=== PATIENT | female | born 1990 | race Asian ===

== ENCOUNTER 2016-07-06 09:44 | Emergency (ER) | payer BC ==
[2016-07-06] MEDS ORDERED: Insulin LISPRO* 1 UNITS UNIT SUBCUT ONE (10:35)
[2016-07-06] MEDS ORDERED: Dextrose 50% Syringe 50 ML* 25 GM/50 ML SYRINGE IV PUSH PRN (10:35)
[2016-07-06] MEDS ORDERED: Insulin REGULAR(*) 1 UNITS UNIT ONE (10:36)
[2016-07-06] MEDS ORDERED: NS 0.9% 1000 ML* 1,000 ML BOLUS SCH (10:45)
[2016-07-06 10:53] LABS: Hematocrit 42 % (35-47); Hemoglobin 14.1 g/dl (12.0-16.0); Mean Corpuscular HGB Conc 34 g/dl (31-36); Mean Corpuscular Hemoglobin 31 pg (27-31); Mean Corpuscular Volume 91 fL (80-97); Mean Platelet Volume 8 um3 (7.4-10.4); Red Blood Count 4.55 10^6/ul (4.0-5.4); Red Cell Distribution Width 12 % (10.5-15)
[2016-07-06] MEDS ORDERED: Insulin REGULAR(*) 1 UNITS UNIT SUBCUT ONE (10:57)
--- NOTE | 2016-07-06 11:00 | ED ---
Respiratory - History of Current Complaint Chief Complaint: EDDiabeticProb Stated Complaint: BLOOD SUGAR ISSUE/SENT FROM [facility] Time Seen by Provider: 07/06/16 10:23 Hx Obtained From: Patient Onset/Duration: Gradual Onset - has had URI for 2-3 weeks. went to [facility] today and was sent here to check sugar. Patient states she did not take insulin yet today and has BS in the 700's in past. She is on a sliding scale of R insulin as well as lantus 30u qd. States she feels weak and dehydrated today. roommate has been sick with gilberto sympnoah. Timing: Constant Initial Severity: Mild Current Severity: Mild Pain Intensity: 3 - Allergy/Home Medications Allergies/Adverse Reactions: Allergies Allergy/AdvReac Type Severity Reaction Status Date / Time Ketorolac Tromethamine Allergy Unknown Verified 07/06/16 09:54 [From Toradol] Reaction Details Meperidine [From Demerol HCl] Allergy Unknown Verified 07/06/16 09:54 Reaction Details Morphine Allergy Unknown Verified 07/06/16 09:54 Reaction Details Promethazine [From Phenergan] Allergy Unknown Verified 07/06/16 09:54 Reaction Details Sulfa Antibiotics Allergy Unknown Verified 07/06/16 09:54 Reaction Details Tramadol Allergy Unknown Verified 07/06/16 09:54 Reaction Details PMH/Surg Hx/FS Hx/Imm Hx Endocrine/Hematology History: Reports: Hx Diabetes - Immunization History Immunizations Up to Date: Yes - Flu vaccine [id number] Infectious Disease History: No Infectious Disease History: Denies: Traveled Outside the [place] in Last 30 Days - Family History Known Family History: Positive: None - Social History Occupation: Employed Full-time - [employer] Lives: With Family Alcohol Use: None Substance Use Type: Reports: None Hx Tobacco Use: No Smoking Status (MU): Never Smoked Tobacco Review of Systems Constitutional: Negative Eyes: Negative Negative: Photophobia, Blurred Vision ENT: Negative Cardiovascular: Negative Negative: Chest Pain Respiratory: Negative Negative: Shortness Of Breath - very vague URI symptoms last week Positive: Nausea. Negative: Abdominal Pain, Diarrhea Genitourinary: Negative Musculoskeletal: Negative Skin: Negative Negative: Rash Neurological: Negative Positive: Headache - intermittant Psychological: Normal All Other Systems Reviewed And Are Negative: Yes Physical Exam Triage Information Reviewed: Yes Vital Signs On Initial Exam: Initial Vitals Temp Pulse Resp BP Pulse Ox 99 F 95 20 127/89 100 07/06/16 09:54 07/06/16 09:54 07/06/16 09:54 07/06/16 09:54 07/06/16 09:54 Vital Signs Reviewed: Yes Appearance: Positive: Well-Appearing, No Pain Distress, Well-Nourished Skin: Positive: Warm, Skin Color Reflects Adequate Perfusion, Dry Head/Face: Positive: Normal Head/Face Inspection Eyes: Positive: Normal, Conjunctiva Clear ENT: Positive: Pharynx normal. Negative: Nasal congestion, Nasal drainage Respiratory/Lung Sounds: Positive: Clear to Auscultation, Breath Sounds Present , Other - no cough Cardiovascular: Positive: Normal, RRR, Pulses are Symmetrical in both Upper and Lower Extremities Abdomen Description: Positive: Nontender, No Organomegaly, Soft Musculoskeletal: Positive: Normal, Strength/ROM Intact Neurological: Positive: Normal, Sensory/Motor Intact, Alert, Oriented to Person Place, Time Psychiatric: Positive: Normal Diagnostics - Vital Signs Vital Signs Temp Pulse Resp BP Pulse Ox 07/06/16 09:54 99 F 95 20 127/89 100 - Laboratory Lab Results: Lab Results 07/06/16 07/06/16 Range/Units 10:25 10:25 WBC 8.0 (3.5-10.8) 10^3/ul RBC 4.55 (4.0-5.4) 10^6/ul Hgb 14.1 (12.0-16.0) g/dl Hct 42 (35-47) % MCV 91 (80-97) fL MCH 31 (27-31) pg MCHC 34 (31-36) g/dl RDW 12 (10.5-15) % Plt Count 263 (150-450) 10^3/ul MPV 8 (7.4-10.4) um3 Neut % (Auto) 58.1 (38-83) % Lymph % (Auto) 33.4 (25-47) % [place] % (Auto) 6.3 (1-9) % Eos % (Auto) 1.5 (0-6) % Baso % (Auto) 0.7 (0-2) % Absolute Neuts (auto) 4.7 (1.5-7.7) 10^3/ul Absolute Lymphs (auto) 2.7 (1.0-4.8) 10^3/ul Absolute Monos (auto) 0.5 (0-0.8) 10^3/ul Absolute Eos (auto) 0.1 (0-0.6) 10^3/ul Absolute Basos (auto) 0.1 (0-0.2) 10^3/ul Absolute Nucleated RBC 0 10^3/ul Nucleated RBC % 0 Lactic Acid 0.7 (0.5-2.0) mmol/L Result Diagrams: 07/06/16 10:25 07/06/16 10:25 Lab Statement: Any lab studies that have been ordered have been reviewed, and results considered in the medical decision making process. Re-Evaluation - Re-Evaluation First Eval Re-Evaluation Time: 12:00 Change: Unchanged Second Eval Re-Evaluation Time: 01:40 - states feels warm, Temp :98.4, given ice water at her request Change: Unchanged Disposition - Course Course Of Treatment: discussed case with Dr. Bal, reviewed labs and agrees with decision to discharge pt home with Rx cipro for UTI and have her monitor BS closely - Differential Dx - Cardiopulmonary Differential Diagnoses - Cardiopulmonary: Other - URI, Hyperglycemia, flu (had vaccine) - Diagnoses Provider Diagnoses: UTI (urinary tract infection), Hyperglycemia due to type 1 diabetes mellitus Discharge - Discharge Plan Condition: Stable Disposition: HOME Prescriptions: Ciprofloxacin HCl [Cipro] 500 mg PO BID #18 tab Patient Education Materials: Urinary Tract Infection in Women (ED), Diabetic Ketoacidosis (ED) Additional Instructions: Take cipro for your urinary tract infection and drink plenty of fluids. Make sure to check your blood sugar more frequently while you have an infection Please review the information about diabetic Ketoacidosis (there is no evidence of this on exam today) Return to ER immediately if your symptoms worsen at any time
[2016-07-06 11:05] LABS: ALT 10 U/L (7-52); Albumin 3.7 g/dL (3.2-5.2); Alkaline Phosphatase 71 U/L (34-104); BUN/Creatinine Ratio 35.2 (8-20); Blood Urea Nitrogen 19 mg/dL (6-24); C Reactive Protein 1.92 mg/L (< 5.00); CO2 Carbon Dioxide 23 mmol/L (22-32); Calcium 8.9 mg/dL (8.6-10.3); Chloride 99 mmol/L (101-111); EGFR African American 175.5 (>60); EGFR Non-African American 136.5 (>60); Glucose 427 mg/dL (70-100); Sodium 131 mmol/L (133-145); Total Protein 6.7 g/dL (6.4-8.9)
[2016-07-06 12:04] LABS: Urine Bacteria 1+ (Absent); Urine Bilirubin Negative (Negative); Urine Glucose 3+(>=500 mg/dL) (Negative); Urine Nitrite Positive (Negative)
[2016-07-06 13:17] LABS: Anion Gap 9 mmol/L (2-11); Potassium 4.1 mmol/L (3.5-5.0)
[2016-07-06 13:24] LABS: AST 12 U/L (13-39)
[2016-07-06] MEDS ORDERED: Acetaminophen TAB* 325 MG PO ONE (15:02)
[2016-07-06] MEDS ORDERED: Ciprofloxacin TAB* 500 MG PO ONE ×2 (15:09)
[2016-07-06 15:45] VITALS: BP 116/78
== END 2016-07-06 15:46 | disposition home or self-care (01) ==
LOC: ED 09:44
DX: J06.9 Acute upper respiratory infection, unspecified (principal); E10.65 Type 1 diabetes mellitus with hyperglycemia; R11.0 Nausea; R51 Headache
CPT/HCPCS: 36415; 80053; 81003; 81015; 83605; 84702; 85025; 86140; 87077; 87086; 87186; 96360; 99282; A9270-GY

== ENCOUNTER 2017-05-19 17:40 | Emergency (ER) | payer SELFPAY ==
[2017-05-19 18:11] VITALS: BP 144/77
--- NOTE | 2017-05-19 20:31 | UC ---
Rodney Colunga Gabriel, scribed for Jewel Mcgrath MD on 05/19/17 at 2012 . Back Pain HPI - HPI Summary HPI Summary: This patient is a 26 year old F presenting to [facility] [place] [facility] accompanied by with a chief complaint of back pain since 9 days ago. The patient rates the pain 8/10 in severity and describes it as a ball of white heat. Patient reports ABD pain and pleuritic pain. Patient denies SOB, diaphoresis, incontinence, vomiting, melena, and diarrhea. Patient says she is unable to work due and is crying at work. - History of Current Complaint Chief Complaint: UCBackPain Stated Complaint: BACK PAIN Time Seen by Provider: 05/19/17 20:05 Hx Obtained From: Patient Hx Last Menstrual Period: 05/05/17 Onset/Duration: Lasting Days - 9, Still Present Timing: Constant Severity Initially: Severe Severity Currently: Moderate Pain Intensity: 8 Pain Scale Used: 0-10 Numeric Associated Signs And Symptoms: Positive: Negative - SOB, diaphoresis, incontinence, vomiting, melena, and diarrhea, Other - ABD pain and pleuritic pain - Allergies/Home Medications Allergies/Adverse Reactions: Allergies Allergy/AdvReac Type Severity Reaction Status Date / Time Ketorolac Tromethamine Allergy Unknown Verified 05/19/17 18:10 [From Toradol] Reaction Details Meperidine [From Demerol HCl] Allergy Unknown Verified 05/19/17 18:10 Reaction Details Morphine Allergy Unknown Verified 05/19/17 18:10 Reaction Details Promethazine [From Phenergan] Allergy Unknown Verified 05/19/17 18:10 Reaction Details Sulfa Antibiotics Allergy Unknown Verified 05/19/17 18:10 Reaction Details Tramadol Allergy Unknown Verified 05/19/17 18:10 Reaction Details Home Medications: Home Medications Gabapentin CAP(*) [Neurontin 100 mg CAP(*)] 200 mg PO TID 05/19/17 [History Confirmed 05/19/17] Naproxen Sodium [Naproxen Sodium 220 mg] 440 mg PO 05/19/17 [History] PMH/Surg Hx/FS Hx/Imm Hx Previously Healthy: No Endocrine History: Diabetes GI/ History: Other Other GI/ History: pancreatitis Neurological History: Seizures, Other Other Neurological History: neuropathy and fibromyalgia - Surgical History Surgical History: Yes Surgery Procedure, Year, and Place: appy, choley, wisdom teeth - Family History Known Family History: Positive: None - Social History Occupation: Employed Full-time Lives: With Family - Alcohol Use: Occasionally Substance Use Type: None Smoking Status (MU): Never Smoked Tobacco Review of Systems Cardiovascular: Other - pleuritic pain Gastrointestinal: Abdominal Pain Musculoskeletal: Other: - back pain All Other Systems Reviewed And Are Negative: Yes Physical Exam Triage Information Reviewed: Yes Appearance: Well-Appearing, No Pain Distress Vital Signs: Initial Vital Signs Temp 98.1 F 05/19/17 18:05 Pulse 121 05/19/17 18:05 Resp 18 05/19/17 18:05 BP 144/77 05/19/17 18:05 Pulse Ox 100 05/19/17 18:05 Vital Signs Reviewed: Yes Eyes: Positive: Conjunctiva Clear ENT: Positive: Normal ENT inspection Neck: Positive: Nontender Respiratory: Positive: Chest non-tender, Lungs clear, Normal breath sounds, Other: - tenderness over the lower lumbar spine Cardiovascular: Positive: RRR, No Murmur, Tachycardia Abdomen Description: Positive: Other: - mild epigastric tenderness Musculoskeletal: Positive: Other: - she is slow to change position due to back pain. Neurological: Positive: Alert, Muscle Tone Normal, Other: - she states she has chronic numbness in legs due to neuropathy. Back Pain Course/Dx - Course Course Of Treatment: 26 yr old female with DM on insulin pump, and with epigastric pain and thoracic back pain. She has baseline impared sensation due to neuropathy. She has had prior pancreatitis. She has tachycardia. She has refused ALS transport to ER for further work up. She has signed out AMA. - Differential Dx/Diagnosis Provider Diagnoses: epigastric abdominal pain. thoracic back pain. tachycardia Discharge - Discharge Plan Condition: Good Disposition: AGAINST MEDICAL ADVICE Referrals: Ana Garza MD [Primary Care Provider] - The documentation as recorded by the Rodney rollins Gabriel accurately reflects the service I personally performed and the decisions made by me, Jewel Mcgrath MD.
== END 2017-05-19 20:30 | disposition left against medical advice (07) ==
LOC: UCEAST 17:40
DX: M54.6 Pain in thoracic spine (principal); R10.13 Epigastric pain; R00.0 Tachycardia, unspecified; E11.40 Type 2 diabetes mellitus with diabetic neuropathy, unspecified; Z79.4 Long term (current) use of insulin; Z96.41 Presence of insulin pump (external) (internal); Z88.2 Allergy status to sulfonamides; Z88.5 Allergy status to narcotic agent; Z88.8 Allergy status to other drugs, medicaments and biological substances
CPT/HCPCS: 99212; G0463

== ENCOUNTER 2017-05-19 20:42 | Emergency (ER) | payer SELFPAY ==
[2017-05-20] LABS: Urine Bacteria 2+ (Absent); Urine Bilirubin Negative (Negative); Urine Glucose 3+(>=500 mg/dL) (Negative); Urine Nitrite Positive (Negative)
[2017-05-20 00:51] LABS: Hematocrit 39 % (35-47); Hemoglobin 13.6 g/dl (12.0-16.0); Mean Corpuscular HGB Conc 35 g/dl (31-36); Mean Corpuscular Hemoglobin 30 pg (27-31); Mean Corpuscular Volume 85 fL (80-97); Mean Platelet Volume 8 um3 (7.4-10.4); Red Blood Count 4.58 10^6/ul (4.0-5.4); Red Cell Distribution Width 12 % (10.5-15); White Blood Count 9.1 10^3/ul (3.5-10.8)
[2017-05-20 01:11] LABS: ALT 12 U/L (7-52); Albumin 3.8 g/dL (3.2-5.2); Alkaline Phosphatase 44 U/L (34-104); Anion Gap 8 mmol/L (2-11); BUN/Creatinine Ratio 28.6 (8-20); Blood Urea Nitrogen 16 mg/dL (6-24); CO2 Carbon Dioxide 22 mmol/L (22-32); Calcium 8.8 mg/dL (8.6-10.3); Chloride 100 mmol/L (101-111); EGFR Non-African American 129.9 (>60); Globulin 3.1 g/dL (2-4); Glucose 292 mg/dL (70-100); Lipase 17 U/L (11.0-82.0); Sodium 130 mmol/L (133-145); Total Protein 6.9 g/dL (6.4-8.9)
[2017-05-20] MEDS ORDERED: oxyCODONE/Acetamin 5/325 MG* TAB PO ONE (01:12)
[2017-05-20] MEDS ORDERED: NS 0.9% 1000 ML* 1,000 ML IV ONE (01:14)
[2017-05-20] MEDS ORDERED: cefTRIAXone(*) 1 GM in NS 0.9% 50 ML* 50 ML IVPB ONE (02:40)
[2017-05-20] MEDS ORDERED: Methocarbamol TAB* 500 MG PO ONE ×2 (02:40→04:00)
--- NOTE | 2017-05-20 03:14 | ED ---
Back Pain - HPI Summary HPI Summary: 26F presents with back pain for a week. She states it started in the center of her posterior back and radiates to the side of her abdomen. She states it is a sharp pain. She states she has been getting hot flashes. She denies any chest pain or SOB. She states she get tingling down her leg. She denies any injury. She denies any loss of bowel or bladder. She denies any saddle parethesia. she has history of pancreatitis. She is diabetic type 1 on insulin pump. She denies any fever, nausea, vomiting. She denies any dysuria, frequency or urgency. She has had gallbladder and appendix removed. she has an extensive allergy list although has taken percocet before. - History of Current Complaint Chief Complaint: EDAbdPain Stated Complaint: ABD/BACK PAIN Time Seen by Provider: 05/19/17 23:58 Hx Last Menstrual Period: 05/05/17 Pain Intensity: 8 - Allergies/Home Medications Allergies/Adverse Reactions: Allergies Allergy/AdvReac Type Severity Reaction Status Date / Time Ketorolac Tromethamine Allergy Unknown Verified 05/19/17 20:52 [From Toradol] Reaction Details Meperidine [From Demerol HCl] Allergy Unknown Verified 05/19/17 20:52 Reaction Details Morphine Allergy Unknown Verified 05/19/17 20:52 Reaction Details Promethazine [From Phenergan] Allergy Unknown Verified 05/19/17 20:52 Reaction Details Sulfa Antibiotics Allergy Unknown Verified 05/19/17 20:52 Reaction Details Tramadol Allergy Unknown Verified 05/19/17 20:52 Reaction Details PMH/Surg Hx/FS Hx/Imm Hx Endocrine/Hematology History: Reports: Hx Diabetes - insulin pump Cardiovascular History: Denies: Hx Myocardial Infarction - Surgical History Surgery Procedure, Year, and Place: appy, choley, wisdom teeth Infectious Disease History: No Infectious Disease History: Denies: Traveled Outside the [place] in Last 30 Days - Family History Known Family History: Positive: None, Blood Disorder - Social History Alcohol Use: Occasionally Substance Use Type: Reports: None Hx Tobacco Use: No Smoking Status (MU): Never Smoked Tobacco Review of Systems Negative: Fever Negative: Chest Pain Negative: Shortness Of Breath Positive: Abdominal Pain Positive: Myalgia - back pain All Other Systems Reviewed And Are Negative: Yes Physical Exam Triage Information Reviewed: Yes Vital Signs On Initial Exam: Initial Vitals Temp Pulse Resp BP Pulse Ox 97.5 F 120 18 132/84 99 05/19/17 20:48 05/19/17 20:48 05/19/17 20:48 05/19/17 20:48 05/19/17 20:48 Vital Signs Reviewed: Yes Appearance: Positive: Pain Distress Skin: Positive: Warm, Dry Head/Face: Positive: Normal Head/Face Inspection Eyes: Positive: Normal, EOMI, ERIN, Conjunctiva Clear ENT: Positive: Normal ENT inspection, Pharynx normal, TMs normal Respiratory/Lung Sounds: Positive: Clear to Auscultation, Breath Sounds Present Cardiovascular: Positive: Normal, RRR Abdomen Description: Positive: Soft, Other: - tenderness epigastric. Negative: CVA Tenderness (R), CVA Tenderness (L) Bowel Sounds: Positive: Present Musculoskeletal: Positive: Limited @ - back, Other - tenderness T12-L2, neg SLR , good pulses Neurological: Positive: Normal, Sensory/Motor Intact - Arlene Coma Scale Coma Scale Total: 15 Diagnostics - Vital Signs Vital Signs Temp Pulse Resp BP Pulse Ox 05/20/17 01:41 16 05/20/17 01:02 99.7 F 73 20 97/66 100 05/19/17 20:48 97.5 F 120 18 132/84 99 - Laboratory Lab Results: Lab Results 05/19/17 05/19/17 05/20/17 Range/Units 22:03 23:38 00:30 WBC 9.1 (3.5-10.8) 10^3/ul RBC 4.58 (4.0-5.4) 10^6/ul Hgb 13.6 (12.0-16.0) g/dl Hct 39 (35-47) % MCV 85 (80-97) fL MCH 30 (27-31) pg MCHC 35 (31-36) g/dl RDW 12 (10.5-15) % Plt Count 307 (150-450) 10^3/ul MPV 8 (7.4-10.4) um3 Neut % (Auto) 56.8 (38-83) % Lymph % (Auto) 34.4 (25-47) % [place] % (Auto) 5.8 (1-9) % Eos % (Auto) 1.7 (0-6) % Baso % (Auto) 1.3 (0-2) % Absolute Neuts (auto) 5.2 (1.5-7.7) 10^3/ul Absolute Lymphs (auto) 3.1 (1.0-4.8) 10^3/ul Absolute Monos (auto) 0.5 (0-0.8) 10^3/ul Absolute Eos (auto) 0.2 (0-0.6) 10^3/ul Absolute Basos (auto) 0.1 (0-0.2) 10^3/ul Absolute Nucleated RBC 0.01 10^3/ul Nucleated RBC % 0.1 D-Dimer, Quantitative (Less Than 230) ng/mL Sodium (133-145) mmol/L Potassium Chloride (101-111) mmol/L Carbon Dioxide (22-32) mmol/L Anion Gap (2-11) mmol/L BUN (6-24) mg/dL Creatinine (0.51-0.95) mg/dL Est GFR ( Amer) (>60) Est GFR (Non-Af Amer) (>60) BUN/Creatinine Ratio (8-20) Glucose (70-100) mg/dL POC Glucose (mg/dL) 327 H (70-100) mg/dL Calcium (8.6-10.3) mg/dL Total Bilirubin (0.2-1.0) mg/dL AST ALT (7-52) U/L Alkaline Phosphatase (34-104) U/L C-React Prot High Sens mg/L Total Protein (6.4-8.9) g/dL Albumin (3.2-5.2) g/dL Globulin (2-4) g/dL Albumin/Globulin Ratio (1-3) Lipase (11.0-82.0) U/L Beta HCG, Quant mIU/mL Urine Color Yellow Urine Appearance Cloudy Urine pH 6.0 (5-9) Ur Specific [place] 1.028 (1.010-1.030) Urine Protein 2+(100 mg/dl) H (Negative) Urine Ketones 2+ H (Negative) Urine Blood 2+ H (Negative) Urine Nitrate Positive H (Negative) Urine Bilirubin Negative (Negative) Urine Urobilinogen Negative (Negative) Ur Leukocyte Esterase Negative (Negative) Urine WBC (Auto) Trace(0-5/hpf) (Absent) Urine RBC (Auto) 3+(>10/hpf) H (Absent) Ur Squamous Epith Cells Present H (Absent) Urine Bacteria 2+ H (Absent) Urine Glucose 3+(>=500 mg/dl) H (Negative) 05/20/17 05/20/17 05/20/17 Range/Units 00:30 00:30 01:21 WBC (3.5-10.8) 10^3/ul RBC (4.0-5.4) 10^6/ul Hgb (12.0-16.0) g/dl Hct (35-47) % MCV (80-97) fL MCH (27-31) pg MCHC (31-36) g/dl RDW (10.5-15) % Plt Count (150-450) 10^3/ul MPV (7.4-10.4) um3 Neut % (Auto) (38-83) % Lymph % (Auto) (25-47) % [place] % (Auto) (1-9) % Eos % (Auto) (0-6) % Baso % (Auto) (0-2) % Absolute Neuts (auto) (1.5-7.7) 10^3/ul Absolute Lymphs (auto) (1.0-4.8) 10^3/ul Absolute Monos (auto) (0-0.8) 10^3/ul Absolute Eos (auto) (0-0.6) 10^3/ul Absolute Basos (auto) (0-0.2) 10^3/ul Absolute Nucleated RBC 10^3/ul Nucleated RBC % D-Dimer, Quantitative < 200 (Less Than 230) ng/mL Sodium 130 L (133-145) mmol/L Potassium TNP 4.3 Chloride 100 L (101-111) mmol/L Carbon Dioxide 22 (22-32) mmol/L Anion Gap 8 (2-11) mmol/L BUN 16 (6-24) mg/dL Creatinine 0.56 (0.51-0.95) mg/dL Est GFR ( Amer) 167.0 (>60) Est GFR (Non-Af Amer) 129.9 (>60) BUN/Creatinine Ratio 28.6 H (8-20) Glucose 292 H (70-100) mg/dL POC Glucose (mg/dL) (70-100) mg/dL Calcium 8.8 (8.6-10.3) mg/dL Total Bilirubin 0.60 (0.2-1.0) mg/dL AST TNP 9 L ALT 12 (7-52) U/L Alkaline Phosphatase 44 (34-104) U/L C-React Prot High Sens 4.40 mg/L Total Protein 6.9 (6.4-8.9) g/dL Albumin 3.8 (3.2-5.2) g/dL Globulin 3.1 (2-4) g/dL Albumin/Globulin Ratio 1.2 (1-3) Lipase 17 (11.0-82.0) U/L Beta HCG, Quant < 0.60 mIU/mL Urine Color Urine Appearance Urine pH (5-9) Ur Specific [place] (1.010-1.030) Urine Protein (Negative) Urine Ketones (Negative) Urine Blood (Negative) Urine Nitrate (Negative) Urine Bilirubin (Negative) Urine Urobilinogen (Negative) Ur Leukocyte Esterase (Negative) Urine WBC (Auto) (Absent) Urine RBC (Auto) (Absent) Ur Squamous Epith Cells (Absent) Urine Bacteria (Absent) Urine Glucose (Negative) Result Diagrams: 05/20/17 00:30 05/20/17 01:21 Lab Statement: Any lab studies that have been ordered have been reviewed, and results considered in the medical decision making process. Re-Evaluation - Re-Evaluation First Eval Re-Evaluation Time: 03:16 Change: Worse Comment: worst after pain meds Back Pain Course/Dx - Course Course Of Treatment: 26F presents with back pain for a week. She states it started in the center of her posterior back and radiates to the side of her abdomen. She denies any chest pain or SOB. She states she get tingling down her leg. She denies any injury. She denies any loss of bowel or bladder. She denies any saddle parethesia. she has history of pancreatitis. She is diabetic type 1 on insulin pump. She denies any fever, nausea, vomiting. She denies any dysuria, frequency or urgency. on exam has tenderness T12-L2. neg CVA tenderness. neg SLR. tenderness in epigastric region. labs normal wbc and lipase. d-dimer normal. urine shows blood ansd wbc, will get CT. gave dose of rocephin for potential uti. will send out to dr Barrett pending CT. - Diagnoses Differential Diagnosis/HQI/PQRI: Positive: Herniated Disc, Other - uti, pyelo, renal stone Provider Diagnoses: Back pain, UTI (urinary tract infection) Discharge - Discharge Plan Condition: Good Disposition: HOME Prescriptions: Ciprofloxacin HCl [Cipro 500 MG TAB] 500 mg PO BID #14 tab Ciprofloxacin TAB* [Cipro 500 MG TAB*] 500 mg PO BID #10 tab Cyclobenzaprine TAB* [Flexeril 10 MG TAB*] 10 mg PO TID PRN #15 tab PRN Reason: Pain Cyclobenzaprine TAB* [Flexeril 10 MG TAB*] 10 mg PO TID PRN #20 tab PRN Reason: Pain - Back Lidocaine PATCH 5%* [Lidoderm 5% Patch*] 1 patch TRANSDERM DAILY #6 patch Patient Education Materials: Urinary Tract Infection in Women (ED), Back Pain ( ED) Referrals: Ana Garza MD [Primary Care Provider] - Additional Instructions: Take antibiotic twice a day for 5 days Take muscle relaxers three times a day Apply lidocaine patches to area for up to 12 hours in one 24 hour period Use ibuprofen or Tylenol for pain every 6 hours ice/heat area, move as much as possible Follow up with primary within 5 days Return to ED if develop any new or worsening symptoms
[2017-05-20] MEDS ORDERED: Lidocaine PATCH 5%* 1 PATCH TRANSDERM ONE (03:16)
[2017-05-20] MEDS ORDERED: cefTRIAXone(*) 1 GM in D5W 50 ML BAG* 50 ML IVPB ONE (04:00)
--- NOTE | 2017-05-20 05:54 | ED ---
Ronaldo Colunga Rebecca, scribed for Tai Barrett MD on 05/20/17 at 0422 . Progress - Progress Note Progress Note: Pt was signed out by Maile Villalpando, pending dispo, awaiting CT Abd/Pel results. - Results/Orders Results/Orders: CT Abd/Pel: Tiny bilateral renal stones versus artifact. No ureterolithiasis or obstructive uropathy. No bladder calculi. Small intraluminal gas in bladder, question recent instrumentations. Unremarkable pancreas. Cholecystectomy, with a surgical clip, probably displaced into right paracolic space along proximal ascending colon. No bowel obstruction, colitis, or free air. Appendix not seen. Moderate feces colon. Small physiologic free fluid cul-de-sac. Dr. Barrett reviewed radiology report. Re-Evaluation - Re-Evaluation First Eval Re-Evaluation Time: 03:16 Change: Worse Comment: worst after pain meds Course/Dx - Course Course Of Treatment: Pt was signed out by WERO Villalpando, pending dispo, awaiting CT Abd/Pel. CT AbdPel results above. Pt's condition is stable and she will be D/C to home with Dx of UTI and back pain. She understands and agrees. Allergies noted. - Diagnoses Provider Diagnoses: Back pain, UTI (urinary tract infection) The documentation as recorded by the Ronaldo rollins Rebecca accurately reflects the service I personally performed and the decisions made by , Tai Barrett MD.
[2017-05-20 06:26] VITALS: BP 116/76
--- NOTE | 2017-05-20 07:49 | RAD ---
CLINICAL HISTORY: Back pain, hematuria COMPARISON: None TECHNIQUE: Multiple contiguous axial CT scans were obtained of the abdomen and pelvis, without intravenous contrast enhancement. Coronal and sagittal multiplanar reformations are submitted for review. Oral contrast was not administered. FINDINGS: The study is limited by the lack of intravenous contrast. This limits evaluation of the solid organs and vasculature. LUNG BASES: The lung bases are clear. LIVER: The liver is normal in shape, size, contour, and attenuation. BILE DUCTS: There is no intrahepatic or extrahepatic biliary dilatation. GALLBLADDER: The gallbladder is not visualized. Surgical clips are noted in the gallbladder fossa. PANCREAS: The pancreas is normal, without mass or ductal dilatation. SPLEEN: Normal in size and appearance. UPPER GI TRACT: Evaluation of the gastrointestinal tract is limited by incomplete gastric distention. The upper GI tract is unremarkable. SMALL BOWEL AND MESENTERY: The small bowel is normal in contour, course, and caliber. There is no obstruction or dilatation. COLON: The colon is normal in contour, course, caliber. There is no pericolonic inflammatory change. The appendix is not seen. Surgical clips are noted along the cecum. ADRENALS: Normal bilaterally. KIDNEYS: The kidneys are normal in shape, size, contour, and axis. There is no hydronephrosis or nephrolithiasis. The small calculi noted on the pulmonary report are not well-visualized on the submitted images. BLADDER: Chest is noted within the lumen of the bladder. PELVIC ORGANS: The uterus and adnexa are grossly normal for technique. AORTA: The aorta is normal. IVC: Unremarkable LYMPH NODES: There is no lymphadenopathy by size criteria. ABDOMINAL WALL: There is no evidence for abdominal wall hernia. BONES AND SOFT TISSUES: Unremarkable OTHER: None IMPRESSION: 1. THERE IS GAS WITHIN THE LUMEN OF THE BLADDER. CORRELATION WITH ANY HISTORY OF RECENT INSTRUMENTATION. 2. NO APPRECIABLE HYDRONEPHROSIS OR NEPHROLITHIASIS.
== END 2017-05-20 04:35 | disposition home or self-care (01) ==
LOC: ED 20:42
DX: M54.9 Dorsalgia, unspecified (principal); N39.0 Urinary tract infection, site not specified; Z32.02 Encounter for pregnancy test, result negative; R20.2 Paresthesia of skin; E10.8 Type 1 diabetes mellitus with unspecified complications; Z96.41 Presence of insulin pump (external) (internal); Z90.49 Acquired absence of other specified parts of digestive tract; Z88.5 Allergy status to narcotic agent; Z88.2 Allergy status to sulfonamides
CPT/HCPCS: 36415; 74176; 80053; 81003; 81015; 83690; 84702; 85025; 85379; 86141; 87086; 96365; 99284; A9270-GY; J0696

== ENCOUNTER 2017-08-11 08:17 | Emergency (ER) | payer BC ==
--- OUTSIDE RECORDS SUMMARY | 2017-08-11 09:10 | XMS REPORT ---
:1990 External Reference #:[id number] Author Organization [facility], Address [address] [place] [id number] Phone [phone] Care Team Providers Name Role Phone Ana Garza M.D. Primary Care Physician Unavailable Payers Type Date Identification Numbers Payment Provider Subscriber Commercial Effective: Policy Number: [employer] [place] [place] 2017 [id number] RALF Reeves PayID: [id number] [address] [address] ALTHEA Gabriel [address] Commercial Expires: 2017 Policy Number: [employer] [place] [place] [id number] RALF Reeves PayID: [id number] [address] [address] ALTHEA Gabriel [address] Problems Date Description Provider Status Onset: 11/06/2016 Onychomycosis Ana Garza M.D. Active Onset: 11/06/2016 Ingrowing nail Ana Garza M.D. Active Onset: 11/06/2016 Bipolar disorder Ana Garza M.D. Active Onset: 11/06/2016 Fibromyalgia Ana Garza M.D. 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 Active polyneuropathy Onset: 11/06/2016 Other seizures Ana Garza M.D. Active Family History Date Family Member(s) Problem(s) Comments General Bipolar Disorder General Leukemia General Heart Disease General Diabetes General Cancer General Kidney Disease General Thyroid Disease General Hypertension Social History Type Date Description Comments Marital Status Single Lives With Significant Other Occupation Unemployed Hand Dominance Right-handed Cigarette Use Denies Cigarette Use Cigars Never Smoked Cigars Smokeless Tobacco Never Used Smokeless Tobacco ETOH Use Occasionally consumes alcohol socially Smoking Patient is a former smoker Recreational Drug Use Denies Drug Use Allergies, Adverse Reactions, Alerts Date Description Reaction Status Severity Comments 11/06/2016 Morphine increased liver enzymes active 11/06/2016 Demerol increases liver enzymes active 11/06/2016 Toradol increases liver enzymes active 11/06/2016 sulfa rash active 11/06/2016 Phenergan reverse effects active 11/12/2016 Tramadol increased liver enzymes active Medications Medication Date Status Form Strength Qnty SIG Indications Ordering Provider Novolog 02/19/ Active Solution 100Unit/ML 2vial via insulin Bradly Lopez 2016 s pump, max Zygmont, daily dose 75 units Priyanka Contour 02/03/ Active Strips 180un six times a Vandana Yamileth Next Blood 2016 day checks Raymond Preston Test TECHNICAL INSPECTOR Levetiracetam 01/27/ Active Tablets 500mg 60tab 1 by mouth G40.309 Ana 2016 s twice a day Kelly Garza Magnesium Oxide 01/16/ Active Capsules 400mg 60cap 1 by mouth Ana2016 s every day Kelly Garza Glucagon 01/15/ Active Kit 1mg 1unit as directed Vandana Carson [facility] 2016 s ASHLYN Preston BD Pen 11/12/ Active Misc 32G X 4 mm 200un 6 Bradly VHumberto Needle/Estrella/Ult 2017 its injections ra Vero Fine/32G X per day 4mm Lantus Solostar 11/06/ Active Solution 100Unit/ML 1box 20 units sq Vandana Carson 2017 Pen-Inject once a day ASHLYN Preston Duloxetine HCL 11/06/ Active Caps DR 30mg 90cap 1 by mouth G40.89 Ana 2016 Part s every day Kelly Garza Norethindrone 11/06/ Active Tablets 0.35mg 84tab take one by G40.89 Ana 2016 s mouth every , day as Kelly directed Gabapentin 11/06/ Active Capsules 100mg 90cap 2 capsules G40.89 Ana 2016 s in the in Greg the M.DHumberto morning, 1 capsule at lunch, and 3 capsules with dinner. Priyanka Contour 01/15/ Hx Strips 300un test 10 Vandana A Blood Glucose 2017 - its times a day Preston, Test Strips TECHNICAL INSPECTOR 2016 Novolog Flexpen 11/06/ Hx Solution 100Unit/ML 30ml take via Bradly V. 2017 - Pen-Inject sliding Zygmont, 02/19/ hortensia salinas MD 2017 60 units daily Keppra 11/06/ Hx Tablets 500mg 60tab 1 by mouth G40.89 Ekaterina Mcghee 2017 - s twice a day BETH Naranjo 2016 Vital Signs Date Vital Result Comment 07/24/2017 Weight 177.38 lb Weight in kg's 80.457 BMI (Body Mass Index) 30.9 kg/m2 BP Systolic 110 mmHg BP Diastolic 76 mmHg Height 63.5 inches 5'3.50" Height in cm's 161.3 cm Hemoglobin A1C 8.5% done in office today 01/27/2017 Weight 161.00 lb Weight in kg's 73.030 BMI (Body Mass Index) 28.1 kg/m2 BP Systolic 118 mmHg BP Diastolic 78 mmHg Heart Rate 68 /min Respiratory Rate 16 /min Height 63.5 inches 5'3.50" Height in cm's 161.3 cm 01/16/2017 Weight 156.50 lb Weight in kg's 70.988 BMI (Body Mass Index) 27.3 kg/m2 BP Systolic 108 mmHg BP Diastolic 80 mmHg Heart Rate 105 /min Respiratory Rate 18 /min Height 63.5 inches 5'3.50" Height in cm's 161.3 cm O2 % BldC Oximetry 98 % 01/15/2017 Weight 143.38 lb Weight in kg's 65.035 BMI (Body Mass Index) 25.0 kg/m2 BP Systolic 118 mmHg BP Diastolic 72 mmHg Heart Rate 84 /min Height 63.5 inches 5'3.50" Height in cm's 161.3 cm Hemoglobin A1C 12.8% done in office today 12/25/2016 Weight 143.00 lb Weight in kg's 64.865 BP Systolic 98 mmHg BP Diastolic 82 mmHg Heart Rate 104 /min Body Temperature 98.9 F Respiratory Rate 18 /min O2 % BldC Oximetry 98 % 12/09/2016 Body Temperature 97.7 F Respiratory Rate 14 /min 11/12/2016 Weight 150.25 lb Weight in kg's 68.153 BP Systolic 126 mmHg BP Diastolic 74 mmHg Heart Rate 72 /min Hemoglobin A1C 14.0% done in office today 11/06/2016 Heart Rate 100 /min Body Temperature 98.9 F Respiratory Rate 18 /min O2 % BldC Oximetry 97 % Results Test Date Test Result H/L Range Note Poppyra 02/14/2017 Levetiracetam, S 13.2 ug/mL 10.0-40.0 Comprehensive Panel 01/15/2017 Sodium 137 mmol/L 136-145 Potassium 3.5 mmol/L 3.5-5.2 Chloride 103 mmol/L 100-108 Co2 23 mmol/L 21-32 Glucose 269 mg/dL High 70-100 BUN 11 mg/dL 7-21 Creatinine 0.7 mg/dL 0.6-1.3 1 Calcium 9.7 mg/dL 8.5-10.8 GFR >60 T Bili 0.6 mg/dL 0.0-1.2 T Protein 6.6 gm/dL 6.4-8.2 Albumin 3.8 gm/dL 3.4-4.8 Alk Phos 61 U/L 40-150 Alt (SGPT) 10 U/L 0-55 Ast (Sgot) 10 U/L 5-37 CBC W/Auto Differential 01/15/2017 WBC 7.5 K/uL 4.8-10.8 RBC 4.59 M/uL 4.20-5.40 Hemoglobin 14.4 gm/dL 12.0-16.0 Hematocrit 41.1 % 36.0-48.0 MCV 89.5 fL 80.0-100.0 MCHC 35.0 % 30.0-36.5 MCH 31.3 pg 27.0-34.0 RDW 10.9 % Low 11.0-15.0 Platelet 333 K/uL 130-450 MPV 7.1 fL 6.0-12.0 NE% 64 % 37-80 Ly% 32 % 10-50 Mo% 3 % 0-12 Eo% 1 % <=8 Ba% 0 % <=3 NE# 4.8 K/uL 1.8-8.6 Lymph# 2.4 K/uL 0.5-5.0 [place]# 0.2 K/uL 0.0-1.3 Eos# 0.1 K/uL 0.0-0.9 Baso# 0.0 K/ul 0.0-0.3 Laboratory test finding 01/15/2017 TSH 0.85 uIU/mL 0.34-4.82 Magnesium 1.6 mg/dL Low 1.7-2.6 2 Comprehensive Panel 01/15/2017 Sodium 137 mmol/L 136-145 Potassium 3.5 mmol/L 3.5-5.2 Chloride 103 mmol/L 100-108 Co2 23 mmol/L 21-32 Glucose 269 mg/dL High 70-100 BUN 11 mg/dL 7-21 Creatinine 0.7 mg/dL 0.6-1.3 3 Calcium 9.7 mg/dL 8.5-10.8 GFR >60 T Bili 0.6 mg/dL 0.0-1.2 T Protein 6.6 gm/dL 6.4-8.2 Albumin 3.8 gm/dL 3.4-4.8 Alk Phos 61 U/L 40-150 Alt (SGPT) 10 U/L 0-55 Ast (Sgot) 10 U/L 5-37 Laboratory test finding 01/15/2017 TSH 0.85 uIU/mL 0.34-4.82 1 Normal Kidney Function or Mild Disease - GFR >OR=60 Chronic Kidney Disease - GFR 15-59 Renal Failure - GFR < 15 GFR not calculated on patients under 18 years of age. 2 [id number] 3 Normal Kidney Function or Mild Disease - GFR >OR=60 Chronic Kidney Disease - GFR 15-59 Renal Failure - GFR < 15 GFR not calculated on patients under 18 years of age. Procedures Date CPT Code Description Status 02/03/2017 17914 Glucose Monitoring Interpretation And Report Completed Encounters Type Date Location Provider CPT E/M Dx Office Visit 07/24/2017 [facility] Diabetes Bradly Pham, 78114 E10.65 8:30a & Endocrinology E66.09 Z71.3 Z79.4 Office Visit 01/27/2017 1:00p [facility] M.D. 37522 G40.309 [place] Office Visit 01/16/2017 11:40a [place] [facility] Ana Garza M.D. 71617 E10.65 Office Visit 01/15/2017 11:30a [facility] Vandana Preston, 09468 E10.65 Diabetes & TECHNICAL INSPECTOR Endocrinology Z91.19 Office Visit 12/25/2016 8:20a [facility] Ana Garza M.D. 33986 E10.65 M79.7 G40.89 Office Visit 12/09/2016 9:30a [place] [facility] [place], [address] E10.65 Specialists-Podiatry DPM L60.8 M21.6x2 M21.6x1 Office Visit 11/12/2016 10:00a [facility] Bradly Pham, 33858 E10.65 Diabetes & MD Endocrinology Office Visit 11/06/2016 10:40a [facility] Ana Garza M.D. 21290 G40.89 E11.42 M79.7 F31.9 L60.0 Plan of Care Future Appointment(s):10/28/2017 1:30 pm - Vandana Preston NP at [facility] Diabetes & Gkncscsbnlsdk85/14/2018 11:40 am - Ana Garza M.D. at [facility]07/24/2017 - Bradly Pham MDE10.65 Type 1 diabetes mellitus with hyperglycemiaComments:- I recommended continuing her insulin pump settings- I explained that good diabetic control lowers the risk on development of new vascular complications and lowers the risk of old vascular disease from worsening- I reviewed a diabetic diet, stressing controlling portion sizes to avoid weight gain, and better controlling the portions of simple sugars and carbohydrates to avoid high spikes in the sugar readings- I discussed avoid and treating hypoglycemia. I asked to be called if recurrent hyperglycemia and hypoglycemia becomes a problem- I encouraged regular follow-up with the eye doctors for routine diabetic eye screening- I reviewed the need for daily self- foot exams, watching for the development of new blisters, ulcers, and lesions on the feet - I will have her seen back in 3-4 [id number] Other obesity due to excess caloriesComments:- I reviewed at length today with the patient concerning a diabetic diet. I stressed the need to control portion sizes better to limit calorie intake to encourage weight loss. I also stressed controlling better the simple sugar and carbohydrates in the diet to better control her blood sugar. - I encouraged regular exercise for 30 minutes, five days per week as tolerated to encouraged modest weight lossZ71.3 Dietary counseling and [id number] FDC (current) use of insulin
[2017-08-11 09:30] LABS: ABS Basophils 0.1 10^3/ul (0-0.2); ABS Eosinophils 0.1 10^3/ul (0-0.6); ABS Monocytes 0.5 10^3/ul (0-0.8); ABS Neutrophils 5.4 10^3/ul (1.5-7.7); ABS Nucleated RBC 0 10^3/ul; Eosinophil % 1.6 % (0-6); Hematocrit 39 % (35-47); Hemoglobin 13.4 g/dl (12.0-16.0); Lymphocyte % 33.6 % (25-47); Mean Corpuscular HGB Conc 34 g/dl (31-36); Mean Corpuscular Hemoglobin 30 pg (27-31); Mean Corpuscular Volume 86 fL (80-97); Mean Platelet Volume 7 um3 (7.4-10.4); Nucleated Red Blood Cells % 0.1; Platelet Count 372 10^3/ul (150-450); Red Blood Count 4.53 10^6/ul (4.0-5.4); Red Cell Distribution Width 13 % (10.5-15); White Blood Count 9.1 10^3/ul (3.5-10.8)
[2017-08-11 09:43] LABS: INR 0.85 (0.77-1.02)
--- NOTE | 2017-08-11 09:46 | RAD ---
INDICATION: Chest pain. COMPARISON: There are no prior studies available for comparison. TECHNIQUE: A portable view of the chest was obtained. FINDINGS: Cardiac and mediastinal contours appear to be within normal limits. The lungs are clear. No pleural effusion is seen. IMPRESSION: NO EVIDENCE FOR ACUTE DISEASE.
[2017-08-11 09:55] LABS: EGFR Non-African American 108.5 (>60)
[2017-08-11] MEDS ORDERED: Ibuprofen TAB* 600 MG PO ONE (10:26)
[2017-08-11] MEDS ORDERED: LORazepam INJ* 2 MG/ML 1 ML VIAL IV PUSH ONE (10:34)
[2017-08-11] MEDS ORDERED: Iodixanol* (CONTRAST) 320 MG/ML 100 ML SDV IV ONE ×2 (10:55→11:04)
--- NOTE | 2017-08-11 11:40 | RAD ---
HISTORY: Chest pain, tachycardia COMPARISONS: None TECHNIQUE: Multiple contiguous axial CT scans of the chest were obtained after the administration of nonionic intravenous contrast, timed to the pulmonary arterial phase of contrast enhancement.. Coronal and sagittal multiplanar reformations are also submitted for review. FINDINGS: NECK AND THYROID: The lower neck and thyroid are unremarkable. CHEST WALL: There is no lower cervical, axillary, or supraclavicular lymphadenopathy by size criteria. HEART AND PERICARDIUM: The heart is unremarkable. AORTA AND PULMONARY VASCULATURE: There is no pulmonary arterial filling defect to suggest pulmonary embolism. There is no linear filling defect within the aorta to suggest aortic dissection. MEDIASTINUM: There is no mediastinal lymphadenopathy by size criteria. DEVANG: There is no hilar lymphadenopathy by size criteria. AIRWAY AND ESOPHAGUS: The airway is unremarkable, without endobronchial filling defect. The esophagus is grossly normal. LUNG PARENCHYMA: The lungs are clear. PLEURA: No pleural abnormalities are noted. UPPER ABDOMEN: The upper abdomen is unremarkable. BONES AND SOFT TISSUES: Unremarkable OTHER: None. IMPRESSION: NO PULMONARY ARTERIAL FILLING DEFECT TO SUGGEST PULMONARY EMBOLISM.
[2017-08-11 13:03] VITALS: BP 118/77
--- NOTE | 2017-08-11 14:32 | ED ---
HPI Chest Pain - HPI Summary HPI Summary: Patient presents to the ED with chief complaint of left lateral chest wall pain which is located "under the ribs." She has been experiencing the symptoms since last evening, with associated numbness and tingling in the bilateral arms and fingertips which has been intermittent. She states the pain is worse with deep inhalation. She also endorses OCP use, denies smoking. Pain is rated a 5 out of 10, constant, worse with inhalation, alleviated with nothing. Denies any cardiac history, but endorses a strong family history of MT. Denies any headaches, diaphoresis, shortness of breath. She states she feels her heart is beating very fast. She is a type I diabetic, but is otherwise healthy. - History of Current Complaint Chief Complaint: EDChestPainROMI Time Seen by Provider: 08/11/17 08:34 Hx Obtained From: Patient Hx Last Menstrual Period: 05/05/17 Onset/Duration: Started Hours Ago Timing: Constant Initial Severity: Moderate Current Severity: Moderate Pain Intensity: 0 Pain Scale Used: 0-10 Numeric Chest Pain Location: Left Anterior Chest Pain Radiates: No Character: Sharp/Stabbing, Tightness Aggravating Factor(s): Nothing Alleviating Factor(s): Nothing Associated Signs and Symptoms: Positive: Chest Pain - Risk Factors Pulmonary Embolism Risk Factors: Oral Contraceptives TAD Risk Factors: Negative AMI/ACS Risk Factors: Diabetes, Family History - Allergy/Home Medications Allergies/Adverse Reactions: Allergies Allergy/AdvReac Type Severity Reaction Status Date / Time MS Ketorolac Tromethamine Allergy Unknown Verified 08/11/17 08:33 [From Toradol] Reaction Details MS Meperidine Allergy Unknown Verified 08/11/17 08:33 [From Demerol HCl] Reaction Details MS Morphine [Morphine] Allergy Unknown Verified 08/11/17 08:33 Reaction Details MS Promethazine Allergy Unknown Verified 08/11/17 08:33 [From Phenergan] Reaction Details MS Sulfa Antibiotics Allergy Unknown Verified 08/11/17 08:33 [Sulfa Antibiotics] Reaction Details MS Tramadol [Tramadol] Allergy Unknown Verified 08/11/17 08:33 Reaction Details PMH/Surg Hx/FS Hx/Imm Hx Previously Healthy: Yes Endocrine/Hematology History: Reports: Hx Diabetes - insulin pump Cardiovascular History: Denies: Hx Hypertension, Hx Myocardial Infarction History: Denies: Hx Renal Disease - Surgical History Surgery Procedure, Year, and Place: appy, choley, wisdom teeth - Immunization History Hx Pertussis Vaccination: No Immunizations Up to Date: Unable to Obtain/Confirm Infectious Disease History: No Infectious Disease History: Denies: Traveled Outside the [place] in Last 30 Days - Family History Known Family History: Positive: None, Blood Disorder - Social History Occupation: Employed Full-time Lives: With Family Alcohol Use: Occasionally Hx Substance Use: No Substance Use Type: Reports: None Hx Tobacco Use: No Smoking Status (MU): Former Smoker Review of Systems Constitutional: Negative Negative: Fever, Chills, Fatigue, Skin Diaphoresis Eyes: Negative Positive: Palpitations, Chest Pain Respiratory: Negative Negative: Shortness Of Breath, Cough Gastrointestinal: Negative Negative: Abdominal Pain, Vomiting, Diarrhea, Nausea Genitourinary: Negative Positive: no symptoms reported, see HPI Musculoskeletal: Negative Positive: Paresthesia, Numbness - bilateral upper extremities and hands Psychological: Normal All Other Systems Reviewed And Are Negative: Yes Physical Exam Triage Information Reviewed: Yes Vital Signs On Initial Exam: Initial Vitals Temp Pulse Resp BP Pulse Ox 97.4 F 105 16 123/95 98 08/11/17 08:20 08/11/17 08:20 08/11/17 08:20 08/11/17 08:20 08/11/17 08:20 Vital Signs Reviewed: Yes Appearance: Positive: Well-Appearing, Well-Nourished Skin: Positive: Warm, Skin Color Reflects Adequate Perfusion Head/Face: Positive: Normal Head/Face Inspection Eyes: Positive: EOMI, ERIN, Conjunctiva Clear Neck: Positive: Supple, No Lymphadenopathy Respiratory/Lung Sounds: Positive: Clear to Auscultation, Breath Sounds Present Cardiovascular: Positive: Normal, RRR, Pulses are Symmetrical in both Upper and Lower Extremities Musculoskeletal: Positive: Normal, Strength/ROM Intact Neurological: Positive: Sensory/Motor Intact, Alert, Oriented to Person Place, Time, Speech Normal Psychiatric: Positive: Normal, Affect/Mood Appropriate AVPU Assessment: Alert Diagnostics - Vital Signs Vital Signs Temp Pulse Resp BP Pulse Ox 08/11/17 13:03 98.3 F 103 16 118/77 97 08/11/17 12:52 27 95 08/11/17 12:50 118/77 08/11/17 11:42 122 15 97 08/11/17 11:30 109 19 100 08/11/17 11:00 115 19 121/85 100 08/11/17 10:53 16 08/11/17 10:30 102 20 128/85 100 08/11/17 10:00 107 17 119/87 100 08/11/17 09:43 106 18 134/94 100 08/11/17 09:30 103 21 100 08/11/17 09:27 118/78 08/11/17 09:22 105 20 99 08/11/17 09:03 24 08/11/17 08:20 97.4 F 105 16 123/95 98 - Laboratory Lab Results: Lab Results 08/11/17 08/11/17 08/11/17 Range/Units 09:13 09:13 09:13 WBC 9.1 (3.5-10.8) 10^3/ul RBC 4.53 (4.0-5.4) 10^6/ul Hgb 13.4 (12.0-16.0) g/dl Hct 39 (35-47) % MCV 86 (80-97) fL MCH 30 (27-31) pg MCHC 34 (31-36) g/dl RDW 13 (10.5-15) % Plt Count 372 (150-450) 10^3/ul MPV 7 L (7.4-10.4) um3 Neut % (Auto) 59.0 (38-83) % Lymph % (Auto) 33.6 (25-47) % [place]linger % (Auto) 5.1 (0-7) % Eos % (Auto) 1.6 (0-6) % Baso % (Auto) 0.7 (0-2) % Absolute Neuts (auto) 5.4 (1.5-7.7) 10^3/ul Absolute Lymphs (auto) 3.0 (1.0-4.8) 10^3/ul Absolute Monos (auto) 0.5 (0-0.8) 10^3/ul Absolute Eos (auto) 0.1 (0-0.6) 10^3/ul Absolute Basos (auto) 0.1 (0-0.2) 10^3/ul Absolute Nucleated RBC 0 10^3/ul Nucleated RBC % 0.1 INR (Anticoag Therapy) 0.85 (0.77-1.02) D-Dimer, Quantitative < 200 (Less Than 230) ng/mL Sodium 135 (133-145) mmol/L Potassium 3.8 (3.5-5.0) mmol/L Chloride 102 (101-111) mmol/L Carbon Dioxide 28 (22-32) mmol/L Anion Gap 5 (2-11) mmol/L BUN 21 (6-24) mg/dL Creatinine 0.65 (0.51-0.95) mg/dL Est GFR ( Amer) 139.6 (>60) Est GFR (Non-Af Amer) 108.5 (>60) BUN/Creatinine Ratio 32.3 H (8-20) Glucose 137 H (70-100) mg/dL Lactic Acid (0.5-2.0) mmol/L Calcium 9.3 (8.6-10.3) mg/dL Magnesium 2.0 (1.9-2.7) mg/dL Total Bilirubin 0.30 (0.2-1.0) mg/dL AST 11 L (13-39) U/L ALT 9 (7-52) U/L Alkaline Phosphatase 45 (34-104) U/L CK-MB (CK-2) 1.8 (0.6-6.3) ng/mL Troponin I 0.00 (<0.04) ng/mL Total Protein 6.7 (6.4-8.9) g/dL Albumin 3.7 (3.2-5.2) g/dL Globulin 3.0 (2-4) g/dL Albumin/Globulin Ratio 1.2 (1-3) Beta HCG, Quant < 0.60 mIU/mL 08/11/17 08/11/17 Range/Units 09:13 12:00 WBC (3.5-10.8) 10^3/ul RBC (4.0-5.4) 10^6/ul Hgb (12.0-16.0) g/dl Hct (35-47) % MCV (80-97) fL MCH (27-31) pg MCHC (31-36) g/dl RDW (10.5-15) % Plt Count (150-450) 10^3/ul MPV (7.4-10.4) um3 Neut % (Auto) (38-83) % Lymph % (Auto) (25-47) % Bollinger % (Auto) (0-7) % Eos % (Auto) (0-6) % Baso % (Auto) (0-2) % Absolute Neuts (auto) (1.5-7.7) 10^3/ul Absolute Lymphs (auto) (1.0-4.8) 10^3/ul Absolute Monos (auto) (0-0.8) 10^3/ul Absolute Eos (auto) (0-0.6) 10^3/ul Absolute Basos (auto) (0-0.2) 10^3/ul Absolute Nucleated RBC 10^3/ul Nucleated RBC % INR (Anticoag Therapy) (0.77-1.02) D-Dimer, Quantitative (Less Than 230) ng/mL Sodium (133-145) mmol/L Potassium (3.5-5.0) mmol/L Chloride (101-111) mmol/L Carbon Dioxide (22-32) mmol/L Anion Gap (2-11) mmol/L BUN (6-24) mg/dL Creatinine (0.51-0.95) mg/dL Est GFR ( Amer) (>60) Est GFR (Non-Af Amer) (>60) BUN/Creatinine Ratio (8-20) Glucose (70-100) mg/dL Lactic Acid 0.7 (0.5-2.0) mmol/L Calcium (8.6-10.3) mg/dL Magnesium (1.9-2.7) mg/dL Total Bilirubin (0.2-1.0) mg/dL AST (13-39) U/L ALT (7-52) U/L Alkaline Phosphatase (34-104) U/L CK-MB (CK-2) (0.6-6.3) ng/mL Troponin I 0.00 (<0.04) ng/mL Total Protein (6.4-8.9) g/dL Albumin (3.2-5.2) g/dL Globulin (2-4) g/dL Albumin/Globulin Ratio (1-3) Beta HCG, Quant mIU/mL Result Diagrams: 08/11/17 09:13 08/11/17 09:13 Lab Statement: Any lab studies that have been ordered have been reviewed, and results considered in the medical decision making process. Chest Pain Course/Dx - Course Course Of Treatment: During the course of treatment, the patient is evaluated for chest pain versus chest wall pain versus other pathology. Labs obtained with 2 negative troponins at 0.00. Chest x-ray obtained which show no acute findings. Ibuprofen and Ativan given with mild relief of symptoms. D-dimer obtained which is less than 200. Due to OCP use with a perked score of 2 criteria met as a moderate risk patient, I have discussed with the patient is CTA of the chest to rule out a PE. Patient agrees to this. CTA obtained and is negative for any decrease flow or PE. All findings were discussed with the patient, and stated I am unable to discern the direct cause of her chest pain. However, I would like to do a trial of Ativan as this improved her symptoms. Likely anxiety due to recent stressors and bilateral intermittent numbness and tingling in the extremities and hands. She agrees to a trial of Ativan as needed for any anxiety symptoms and will return for any worsening or changing symptoms of chest pain. She is to follow-up this week with her PCP. - Chest Pain Differential Diagnosis/HQI/PQRI: Chest Wall - Diagnoses Provider Diagnoses: Anxiety, Chest pain Discharge - Discharge Plan Condition: Stable Disposition: HOME Prescriptions: LORazepam TAB(*) [Ativan 1 MG TAB (*)] 1 mg PO Q8H PRN #10 tab MDD 3 PRN Reason: Anxiety Patient Education Materials: Chest Pain (ED), Costochondritis (ED), Anxiety (ED ) Forms: *Work Release Referrals: Ana Garza MD [Primary Care Provider] - Additional Instructions: Please follow-up with your PCP as scheduled next week Ativan is given to you for any anxiety symptoms, this is also used as a muscle relaxer I have given you information on costochondritis, anxiety, and chest pain As discussed, all your labs were normal today including a CAT scan of the chest to look for pulmonary embolism I believe he may have anxiety symptoms which is the cause of your bilateral hand tingling Ibuprofen 600 mg 3 times daily should be used for any muscular component You may also try to use moist heat to the area to relax the muscles
== END 2017-08-11 13:03 | disposition home or self-care (01) ==
LOC: ED 08:17
DX: F41.9 Anxiety disorder, unspecified (principal); R07.89 Other chest pain; Z87.891 Personal history of nicotine dependence; Z88.5 Allergy status to narcotic agent; Z88.2 Allergy status to sulfonamides
CPT/HCPCS: 36415; 71045; 71275; 80053; 82553; 83605; 83735; 84484; 84702; 85025; 85379; 85610; 96374; 99284; A9270-GY; J2060; Q9967

== ENCOUNTER 2018-01-28 17:33 | Emergency (ER) | payer BC ==
--- NOTE | 2018-01-28 18:16 | ED ---
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 Pain described as intermittent, pins and needles sensation, worse with flexion and extension of right wrist and right fingers.. Patient states she has history of postsurgical blood clots in her arm , is concerned that she has a blood clot. Denies trauma, neck pain, shoulder pain, back pain, vision change, SAHNI, lower extremity weakness, recent surgery, immobilization, , CP, SOB, fever, cough, sore throat, N/V/D, abdominal pain, change in urine, change in BM. No anti-coag. , Recently stopped taking OCP. States family history of blood clots. - History of Current Complaint Chief Complaint: EDExtremityUpper Stated Complaint: RT ARM PAIN WITH SWELLING Time Seen by Provider: 01/28/18 17:44 Hx Last Menstrual Period: 05/05/17 Mechanism Of Injury: Unknown Onset/Duration: Started Days Ago Timing: Intermittent Severity Initially: Moderate Severity Currently: Moderate Pain Location: Wrist, Hand Character: Aching Aggravating Factor(s): Movement, Flexion Alleviating Factor(s): Nothing Associated Signs & Symptoms: Positive: Weakness, Numbness/Tingling - Risk Factors DVT Risk Factors: Prior DVT - Postsurgery, Family Hx of Clotting Disorder - Allergies/Home Medications Allergies/Adverse Reactions: Allergies Allergy/AdvReac Type Severity Reaction Status Date / Time MS Ketorolac Tromethamine Allergy Unknown Verified 08/11/17 08:33 [From Toradol] Reaction Details MS Meperidine Allergy Unknown Verified 08/11/17 08:33 [From Demerol HCl] Reaction Details MS Morphine [Morphine] Allergy Unknown Verified 08/11/17 08:33 Reaction Details MS Promethazine Allergy Unknown Verified 08/11/17 08:33 [From Phenergan] Reaction Details MS Sulfa Antibiotics Allergy Unknown Verified 08/11/17 08:33 [Sulfa Antibiotics] Reaction Details MS Tramadol [Tramadol] Allergy Unknown Verified 08/11/17 08:33 Reaction Details PMH/Surg Hx/FS Hx/Imm Hx Endocrine/Hematology History: Reports: Hx Diabetes - insulin pump Cardiovascular History: Denies: Hx Hypertension, Hx Myocardial Infarction History: Denies: Hx Renal Disease - Surgical History Surgery Procedure, Year, and Place: appy, choley, wisdom teeth Infectious Disease History: No Infectious Disease History: Denies: Traveled Outside the [place] in Last 30 Days - Family History Known Family History: Positive: None, Blood Disorder - Social History Alcohol Use: Occasionally Hx Substance Use: No Substance Use Type: Reports: None Hx Tobacco Use: No Smoking Status (MU): Former Smoker Review of Systems Constitutional: Negative Eyes: Negative ENT: Negative Cardiovascular: Negative Respiratory: Negative Gastrointestinal: Negative Genitourinary: Negative Musculoskeletal: Other Skin: Negative Neurological: Negative Psychological: Normal All Other Systems Reviewed And Are Negative: Yes Physical Exam - Summary Physical Exam Summary: No swelling, erythema, deformity, extra warmth, tightness noticed to right upper extremity versus left upper extremity. 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 Extension and flexion of elbow and shoulder intact with normal strength. Hand and wrist mildly tender to palpation. Positive Tinel's. Positive Phalen's Triage Information Reviewed: Yes Vital Signs On Initial Exam: Initial Vitals Temp Pulse Resp BP Pulse Ox 96.9 F 87 19 135/91 100 01/28/18 17:38 01/28/18 17:38 01/28/18 17:38 01/28/18 17:38 01/28/18 17:38 Vital Signs Reviewed: Yes Appearance: Positive: Well-Appearing Skin: Positive: Warm Head/Face: Positive: Normal Head/Face Inspection Eyes: Positive: Normal Neck: Positive: Supple Respiratory/Lung Sounds: Positive: Clear to Auscultation Cardiovascular: Positive: Normal Abdomen Description: Positive: Nontender Musculoskeletal: Positive: Normal Neurological: Positive: Normal Psychiatric: Positive: Normal AVPU Assessment: Alert - Arlene Coma Scale Best Eye Response: 4 - Spontaneous Best Motor Response: 6 - Obeys Commands Best Verbal Response: 5 - Oriented Coma Scale Total: 15 Diagnostics - Vital Signs Vital Signs Temp Pulse Resp BP Pulse Ox 01/28/18 17:38 96.9 F 87 19 135/91 100 - Laboratory Lab Statement: Any lab studies that have been ordered have been reviewed, and results considered in the medical decision making process. 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 Pain described as intermittent, pins and needles sensation, worse with flexion and extension of right wrist and right fingers.. Patient states she has history of postsurgical blood clots in her arm, is concerned that she has a blood clot. Denies trauma, neck pain, shoulder pain, back pain, vision change, SAHNI, lower extremity weakness , recent surgery, immobilization, , CP, SOB, fever, cough, sore throat , N/V/D, abdominal pain, change in urine, change in BM. No anti-coag. , Recently stopped taking OCP. States family history of blood clots. No swelling , erythema, deformity, extra warmth, tightness noticed to right upper extremity versus left upper extremity. 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 Extension and flexion of elbow and shoulder intact with normal strength. Hand and wrist mildly tender to palpation. Positive Tinel's. Positive Phalen's. Patient very anxious about having possible blood clot. Patient remained very anxious despite serial reassurance that this was not able to clot. Ultrasound was ordered. Ultrasound negative for DVT. Patient given wrist brace for right wrist. Already taking meloxicam for foot pain. Follow-up with orthopedics. - Diagnoses Provider Diagnoses: Peripheral neuropathy Discharge - Sign-Out/Discharge Documenting (check all that apply): Patient Departure - Discharge Plan Condition: Stable Disposition: HOME Patient Education Materials: Peripheral Neuropathy (ED) Referrals: Ana Garza MD [Primary Care Provider] - Roney Mckinney MD [Medical Doctor] - Additional Instructions: Follow-up with orthopedics for further evaluation of right arm neuropathy including possible carpal tunnel syndrome. Return to the ED for any new or worsening symptoms - Billing Disposition and Condition Condition: STABLE Disposition: Home
--- NOTE | 2018-01-28 20:20 | RAD ---
EXAM: US Duplex Right Upper Extremity Veins CLINICAL HISTORY: 27 years old, female; Pain; Arn, upper and arm; Right; Additional info: Arm swelling pain, HX of clots TECHNIQUE: Real-time duplex ultrasound scan of the right upper extremity veins integrating B-mode two-dimensional vascular structure, Doppler spectral analysis, color flow Doppler imaging and compression. COMPARISON: No relevant prior studies available. FINDINGS: Deep veins: Unremarkable. No DVT in the internal jugular, subclavian, axillary, or brachial veins. The veins demonstrate normal color flow, are normally compressible, with normal phasic flow and/or augmentation response. Superficial veins: Unremarkable. No thrombus in the visualized basilic and cephalic veins. Soft tissues: No acute findings. IMPRESSION: Normal right upper extremity duplex venous ultrasound.
[2018-01-28 20:39] VITALS: BP 139/90
== END 2018-01-28 20:37 | disposition home or self-care (01) ==
LOC: ED 17:33
DX: G62.9 Polyneuropathy, unspecified (principal); E11.8 Type 2 diabetes mellitus with unspecified complications; Z79.4 Long term (current) use of insulin; Z87.891 Personal history of nicotine dependence
CPT/HCPCS: 99282